=== PATIENT | male | born 1980 | race Caucasian/White ===

== ENCOUNTER 2018-03-24 10:38 | Day surgery (SDC) | payer BC ==
[~2018-03-24] VITALS: Ht 175.3 cm; Wt 59.3 kg
[2018-03-24 11:33] VITALS: BP 137/58; PULSE 88; TEMP 98.5
[2018-03-24] MEDS ORDERED: MOTRIN 200200 MG/TAB PO (11:42)
[2018-03-24] MEDS ORDERED: TYLENOL 500MG500 MG PO (11:42)
[2018-03-24] MEDS ORDERED: NORCO 325 MG-51 TAB PO (14:43)
[2018-03-24] MEDS ORDERED: MOTRIN 600600 MG/TAB PO (14:43)
[2018-03-24] MEDS ORDERED: Work Release (14:46)
[2018-03-24 15:05] VITALS: BP 121/62; PULSE 75
--- NOTE | 2018-03-24 15:05 | NUR ---
Patient returns to room 8 per cart and is awake and alert. Temp 98.0 and room air sats 97%. Incisions x3 across abdomen clean and dry and covered with viera set. IV fluids infusing and siderails up x2. Call light in reach. Spuose at side.
[2018-03-24 15:20] VITALS: BP 122/60; PULSE 74
--- NOTE | 2018-03-24 15:20 | NUR ---
Patient is resting and offers no complaints of pain or nausea.
[2018-03-24 15:35] VITALS: BP 123/56; PULSE 65
--- NOTE | 2018-03-24 15:35 | NUR ---
Patient is eating applesauce and drinking apple juice. Denies nausea.
[2018-03-24 15:44] VITALS: TEMP 98
[2018-03-24 15:50] VITALS: BP 126/47; PULSE 72
--- NOTE | 2018-03-24 15:50 | NUR ---
Tolerates snack without complaints of nausea.
--- NOTE | 2018-03-24 15:57 | NUR ---
Medicated with [place] 5mg tablet for complaints of incisional soreness with movement at 3-410.
--- NOTE | 2018-03-24 16:00 | NUR ---
Patient voids and returns to room. IV discontinued and site is free of redness. Patient dresses self.
--- NOTE | 2018-03-24 16:17 | NUR ---
Patient given dismissal instructions and voices understanding of these. Spouse given scripts for [place], Motrin, and work release.
--- NOTE | 2018-03-24 16:20 | NUR ---
Patient dismissed to home per private vehicle driven by spouse with intructions in hand. Taken to the front door per wheelchair and assisted into vehicle by Neyda KIRKLAND
== END 2018-03-24 16:20 | disposition home or self-care (01) ==
LOC: SDCO 10:38
DX: K40.90 Unilateral inguinal hernia, without obstruction or gangrene, not specified as recurrent (principal); J44.9 Chronic obstructive pulmonary disease, unspecified; F17.210 Nicotine dependence, cigarettes, uncomplicated
CPT/HCPCS: C1781; J0690; J1100; J1885; J2405; J2704; J2710; J3010; J7120

== ENCOUNTER 2021-10-15 17:52 | Emergency (ER) | payer SELFPAY ==
[~2021-10-15] VITALS: Ht 177.8 cm; Wt 54.5 kg
[~2021-10-15 17:52] MED LIST: MOTRIN 200200 MG/TAB PO; MOTRIN 600600 MG/TAB PO; NORCO 325 MG-51 TAB PO; TYLENOL 500MG500 MG PO; Work Release
[2021-10-15 18:00] VITALS: TEMP 98.4
[2021-10-15] MEDS ORDERED: ILOTYCIN5 MG/GM OP (19:19)
[2021-10-15 19:30] VITALS: BP 113/92; PULSE 69
== END 2021-10-15 19:30 | disposition home or self-care (01) ==
LOC: COL.ER 17:52
DX: T26.61XA Corrosion of cornea and conjunctival sac, right eye, initial encounter (principal); F17.210 Nicotine dependence, cigarettes, uncomplicated; Z28.310 Unvaccinated for COVID-19; Y92.810 Car as the place of occurrence of the external cause